=== PATIENT | female | born 1965 | race Caucasian/White ===

== ENCOUNTER → 2019-02-22 03:26 | Emergency (ER) | payer BC ==
[~2019-02-22 03:26] MED LIST: Ketorolac INJ* 30 MG/ML 1 ML VIAL IV PUSH ONE; Morphine 4 MG/ML VIAL (1 ml) 4 MG/ML VIAL IV ONE; NS 0.9% 1000 ML** 1,000 ML IV ONE; oxyCODONE/Acetamin 5/325 MG* TAB PO ONE
--- NOTE | 2019-02-22 03:43 | ED ---
GI/ HPI - HPI Summary HPI Summary: Patient is a 53 y/o F presenting to ED with complaints of left flank pain, N/V. She states that she woke up today at midnight with Sx. Patient notes that she has Hx of kindey stones and present Sx feel similar to her prior episodes. She notes that her kidney stones typically pass on their own. Patient took ibuprofen at 0100 today with minimal relief in Sx. On triage, pain is rated 9/10 , nothing is noted to aggravate/alleviate Sx. Home medications and allergies are reviewed. - History of Current Complaint Chief Complaint: EDFlankPain Time Seen by Provider: 02/22/19 03:40 Stated Complaint: LEFT SIDE MS PAIN/POSS KIDNEY STONE PER PT Hx Obtained From: Patient Hx Last Menstrual Period: start of November Onset/Duration: Started Hours Ago - midnight Timing: Constant, Lasting Hours - midnight Severity: Severe - 9/10 Current Severity: Severe - 9/10 Pain Intensity: 9 Location of Pain: Flank - left Associated Signs and Symptoms: Positive: Nausea, Vomiting, Flank Pain - left Aggravating Factor(s): Nothing Alleviating Factor(s): Nothing - Allergy/Home Medications Allergies/Adverse Reactions: Allergies Allergy/AdvReac Type Severity Reaction Status Date / Time No Known Allergies Allergy Verified 02/22/19 04:29 PMH/Surg Hx/FS Hx/Imm Hx History: Reports: Hx Kidney Stones Sensory History: Denies: Hx Legally Blind, Hx Deafness Opthamlomology History: Denies: Hx Legally Blind EENT History: Denies: Hx Deafness - Surgical History Surgery Procedure, Year, and Place: 13 knee surgies on left. 2 knee surgeries on right. 2 right shoulder surgeries Infectious Disease History: No Infectious Disease History: Denies: Traveled Outside the [place] in Last 30 Days - Family History Known Family History: Positive: Hypertension - Social History Alcohol Use: Rare Substance Use Type: Reports: None Smoking Status (MU): Never Smoked Tobacco Review of Systems Positive: Vomiting, Nausea Positive: flank pain - left All Other Systems Reviewed And Are Negative: Yes Physical Exam - Summary Physical Exam Summary: Appearance: Well-appearing, Well-nourished, lying in bed comfortably Skin: Warm, dry, no obvious rash Eyes: sclera anicteric, no conjunctival pallor ENT: mucous membranes moist, pharynx appears normal Neck: Supple, nontender Respiratory: Clear to auscultation, no signs of respiratory distress Cardiovascular: Normal S1, S2. No murmurs. Normal distal pulses in tibial and radial bilaterally. Abdomen: Soft, nontender, normal active bowel sounds present Musculoskeletal: Normal, Strength/ROM Intact Neurological: A&Ox3, awake and alert, mentation is normal, speech is fluent and appropriate Psychiatric: affect is normal, does not appear anxious or depressed Triage Information Reviewed: Yes Vital Signs On Initial Exam: Initial Vitals Temp Pulse Resp BP Pulse Ox 97.9 F 73 22 0/0 99 02/22/19 03:31 02/22/19 03:31 02/22/19 03:31 02/22/19 03:31 02/22/19 03:31 Vital Signs Reviewed: Yes Diagnostics - Vital Signs Vital Signs Temp Pulse Resp BP Pulse Ox 02/22/19 03:31 97.9 F 73 22 0/0 99 - Laboratory Result Diagrams: 02/22/19 04:02 02/22/19 04:02 Lab Statement: Any lab studies that have been ordered have been reviewed, and results considered in the medical decision making process. Re-Evaluation - Re-Evaluation First Eval Re-Evaluation Time: 05:20 Change: Improved Comment: Pain improved with medications. Results of labs and tests were discussed with the patient, she will be discharged to home and was advised to follow up with urologist if needed. She is agreeable with this. GIGU Course/Dx - Course Course Of Treatment: Patient is a 53 y/o F presenting to ED with complaints of left flank pain, N/V. She states that she woke up today at midnight with Sx. Patient notes that she has Hx of kindey stones and present Sx feel similar to her prior episodes. She notes that her kidney stones typically pass on their own. Patient took ibuprofen at 0100 today with minimal relief in Sx. Physical exam was unremarkable. Labs showed absolute neuts 8.8, BUN/creatinine ratio 25.6, glucose 118. UA showed 2+ protein, trace ketones, 3+ blood, 3+ RBC, present squamous epith cells, ascorbic acid positive. During ED course, patient received fluids, Percocet 5/325 2 tabs, morphine 4 mg IV, toradol 10 mg IV. Results of labs and tests were discussed with the patient, she will be discharged to home and was advised to follow up with urologist if needed. She is agreeable with this. - Diagnoses Provider Diagnoses: Renal colic Discharge - Sign-Out/Discharge Documenting (check all that apply): Patient Departure - DISCHARGE Patient Received Moderate/Deep Sedation with Procedure: No - Discharge Plan Condition: Improved Disposition: HOME Prescriptions: Ondansetron ODT TAB* [Zofran 4 MG Odt TAB*] 8 mg PO Q6H PRN #12 tab.odt PRN Reason: Nausea oxyCODONE/Acetamin 5/325 MG* [Percocet 5/325 TAB*] 1 tab PO Q4H PRN #16 tab MDD 4 PRN Reason: Pain Patient Education Materials: Renal Colic (ED) Referrals: Marshal Marcano MD [Medical Doctor] - If Needed - Billing Disposition and Condition Condition: IMPROVED Disposition: Home - Attestation Statements Document Initiated by Scribe: Yes Documenting Scribe: MORA ALVARADO Provider For Whom Scribe is Documenting (Include Credential): NIMESH COMER MD Scribe Attestation: MORA Rosales, scribed for NIMESH COMER MD on 02/23/19 at 1925. Scribe Documentation Reviewed: Yes Provider Attestation: The documentation as recorded by the MORA velasco accurately reflects the service I personally performed and the decisions made by NIMESH michelle MD Status of Scribe Document: Viewed
[2019-02-22 04:09] LABS: ABS Eosinophils 0.1 10^3/ul (0-0.6); ABS Monocytes 0.3 10^3/ul (0-0.8); ABS Neutrophils 8.8 10^3/ul (1.5-7.7); Eosinophil % 1.1 %; Hematocrit 39 % (35-47); Hemoglobin 13.4 g/dL (12.0-16.0); Mean Corpuscular HGB Conc 34 g/dL (31-36); Mean Corpuscular Hemoglobin 30 pg (27-31); Mean Corpuscular Volume 87 fL (80-97); Mean Platelet Volume 8.4 fL (7.4-10.4); Platelet Count 180 10^3/uL (150-450); Red Blood Count 4.49 10^6 /uL (3.70-4.87); Red Cell Distribution Width 13 % (10.5-15); White Blood Count 10.3 10^3/uL (3.5-10.8)
[2019-02-22 04:18] LABS: Albumin 4.3 g/dL (3.2-5.2); Calcium 9.5 mg/dL (8.6-10.3); Total Bilirubin 0.5 mg/dL (0.2-1.0)
[2019-02-22 04:24] LABS: Albumin/Globulin Ratio 1.9 (1-3); BUN/Creatinine Ratio 25.6 (8-20); EGFR African American 78.7 (>60); Globulin 2.3 g/dL (2-4); Total Protein 6.6 g/dL (6.4-8.9)
[2019-02-22 05:01] LABS: Urine Appearance Cloudy; Urine Bacteria Absent (Absent); Urine Bilirubin Negative (Negative); Urine Blood 3+ (Negative); Urine Color Yellow; Urine Glucose Negative (Negative); Urine Ketones Trace (Negative); Urine Nitrite Negative (Negative); Urine Protein 2+(100 mg/dL) (Negative); Urine Red Blood Cell 3+(>10/hpf) (Absent); Urine Specific Gravity 1.023 (1.010-1.030); Urine Squamous Epithelial Cell Present (Absent); Urine Urobilinogen Negative (Negative); Urine White Blood Cell Absent (Absent)
[2019-02-22 05:48] VITALS: BP 91/62
== END | disposition home or self-care (01) ==
LOC: ED 03:26
DX: N23 Unspecified renal colic (principal); Z87.442 Personal history of urinary calculi
CPT/HCPCS: 36415; 80053; 81003; 81015; 85025; 96361; 96374; 96375; 99283; A9270-GY; J1885; J2270